=== PATIENT | male | born 1985 ===

== ENCOUNTER 2019-11-06 09:03 | Outpatient (REF) | payer OTHER, SELFPAY ==
[2019-11-06 21:35] LABS: HGB 13.3 g/dL (13.5-17.5); MCH 28.9 pg (27.0-33.0); MCHC 32.4 % (32.0-36.0); MCV 88.9 fL (80-95); Platelet Count 216 10^3/uL (130-400); RBC 4.61 10^6/uL (4.36-5.78); RDW 13.2 % (11.8-14.1); WBC 6.34 10^3/uL (4.4-10.8)
[2019-11-06 22:06] LABS: BUN 19 mg/dL (7-18); Calcium 8.9 mg/dL (8.5-10.1); Calculated LDL 96 mg/dL (<100); Chloride 107 mmol/L (98-107); Cholesterol 142 mg/dL (<200); Glucose 108 mg/dL (74-106); HDL Cholesterol 32 mg/dL (40-60); Potassium 4.3 mmol/L (3.5-5.1); Sodium 143 mmol/L (136-145); Triglyceride 73 mg/dL (<150)
[2019-11-06 22:18] LABS: ESR 32 mm/hr (0-15)
[2019-11-06 22:19] LABS: C-Reactive Protein 0.96 mg/dL (0.0-0.3)
== END 2019-11-06 09:23 ==
LOC: NCHCN 09:03
PROVIDERS: PCP Physician Assistant; Visit Provider Physician Assistant
DX: Z00.00 Encounter for general adult medical examination without abnormal findings (principal); I48.0 Paroxysmal atrial fibrillation; K92.1 Melena
CPT/HCPCS: 80048; 80061; 85027; 85652; 86140